=== PATIENT | female | born 1955 | race Caucasian/White ===

== ENCOUNTER 2017-06-19 09:45 | Outpatient (RCR) | payer OTHER ==
--- NOTE | 2017-04-10 17:15 | PT INITIAL EVALUATION ---
MEDICAL DIAGNOSIS: R shoulder pain/irritation, s/p injury. Tendinosis, impingement TREATMENT DIAGNOSIS: same DATE OF ONSET: 03/21/17 SUBJECTIVE: Moraima Vásquez presents to physical therapy with complaints of R shoulder pain that occurred as a result of a work related accident. She reports that on March 21, 2017 while working, she was lifting/transferring a difficult patient with the easy-lift and had a difficulty time with the transfer in which it required a lot of pulling and tugging and during that time she injured her R shoulder. She reports that she does not have any resting pain and rates it to be 0/10 at rest. She reports that her pain increases to 2-3/10 with the following R shoulder motions: horizontal adduction , IR/ER, and turning the steering wheel motion.She describes the pain as a dull ache. She reports that Ford Ramirez MD placed her on lifting restrictions during work. Lastly, she reports that her R shoulder feels better in the morning and worse in the evening. REHAB PROBLEM LIST: Increased Pain Decreased ROM Decreased Strength Decreased Endurance Decreased Function Decreased ADL's PREVIOUS MEDICAL HISTORY: See EMR OCCUPATION: RN at [employer] OBJECTIVE: Posture: She demonstrated minimal B rounded shoulder and forward head ROM: R shoulder AROM: abduction: full; painful arc, flexion: full, end range pain, extension: full, scaption: full, end range pain. IR and ER: full with end range pain. R shoulder PROM: abduction, scaption, flexion. IR, and ER: full with empty end feel Strength: R shoulder: flexion: strong and painless, scaption: strong and painful , abduction: strong and painful, IR: strong and painless, ER: strong and painful. Palpation: TTP: insertional points of the supraspinatus and LHB Special Tests: (+) neers, yocums, and jiang-yoli, (-) for full tears within RTC musculature, (+) open can = supraspinatus involvement, normal scapular thoracic mobility Mobility: Independent Gait: Independent ASSESSMENT: Moraima will benefit from skilled physical therapy to address the listed impairments to improve function and QOL. Short Term Goals 4 weeks: Pt will demonstrate full AROM into flexion, abduction, extension, IR, ER, and abduction with 0/10 pain to improve function and QOL. 8 weeks: Pt will demonstrate 4+/5 with RTC and periscapular strength to improve function and QOL. Patient's Goals improve strength and return to lifting in work PLAN: Patient to be seen for Manual Therapy/STM/MET Strengthening/condition Range of Motion Spinal Stabilization Ultrasound Work Hardening/Cond Stretching Iontophoresis Neuromuscular Re-ed Closed Chain Program Electrical Stim Posture/Body mechanics Home Exercise Program Therapeutic Activities 2x/Week for 2 Months If you have any questions, comments, or concerns about this report or plan, please contact me at . Thank you, Raul Liang, PT, DPT MTDD
[~2017-06-19 09:45] MED LIST: DIA5 PO; KET10 PO; LEVO150T72 PO; VALS1TAB96 PO
== END 2017-07-08 ==
LOC: PT 09:45
PROVIDERS: ATTEND Orthopaedic Surgery
DX: M25.511 Pain in right shoulder (principal); M75.41 Impingement syndrome of right shoulder; M65.811 Other synovitis and tenosynovitis, right shoulder; Y93.F2 Activity, caregiving, lifting; Y92.230 Patient room in hospital as the place of occurrence of the external cause
CPT/HCPCS: 97162

== ENCOUNTER 2017-07-09 11:15 | Outpatient (RCR) | payer OTHER ==
--- NOTE | 2017-07-10 10:40 | PT PLAN OF CARE ---
Physician: Ford Ramirez MD Patient is being seen: 1-2x/week Therapist: Raul Liang, PT, DPT Medical Diagnosis: R shoulder pain/irritation, s/p injury. Tendinosis, impingement Treatment Diagnosis: same Date of Onset: 03/21/17 Date of Initial Evaluation: 04/09/17 Date patient was last seen: 07/09/17 Number of treatments: 10 Number of cancellations/No shows: [*] INTERVENTIONS: Manual Therapy/STM/MET Strengthening/condition Range of Motion Spinal Stabilization Ultrasound Work Hardening/Cond Stretching Iontophoresis Neuromuscular Re-ed Closed Chain Program Electrical Stim Posture/Body mechanics Home Exercise Program Therapeutic Activities GOALS: 4 weeks: Pt will demonstrate full AROM into flexion, abduction, extension, IR, ER, and abduction with 0/10 pain to improve function and QOL. MET 8 weeks: Pt will demonstrate 4+/5 with RTC and periscapular strength to improve function and QOL. MET PATIENT'S GOAL: improve strength and return to lifting in work Status of Patient's Goals: MET Patient Compliance: Good Prognosis: Excellent Reasons for continuing therapy: This is a discharge note for Moraima Vásquez. She reports that she feels like her shoulder is getting better and better. She rates her current pain to be 0/10. She states that the shoulder is doing well, however, continues to feel pain around the upper trap continues to be the most bothersome if anything. She reports that she feels like she is doing well and can manage on her own. She demonstrated full PROM-AROM in all directions with R shoulder with normalized end feels, the catching has resolved, improved R shoulder strength in all direction with abolished pain during MMT, improved scapular stabilization, and independent with her home exercise program. She has met all of her goals. As a result, she will be discharged from formal PT to [facility]. OBJECTIVE: Posture: She demonstrated minimal B rounded shoulder and forward head ROM: R shoulder AROM: abduction: full normal end feel, flexion: full, normal end feel, extension: full, scaption: full, normal end feel. IR and ER: full with normal end feel. R shoulder PROM: abduction, scaption, flexion. IR, and ER: full with normal end feel Strength: R shoulder: flexion: 5/5, scaption: 4+/5, abduction: 4+/5, IR: 5/5, ER: 4+/5 Special Tests: (-) calin, latoya, and john, (-) for full tears within RTC musculature, (-) open can = supraspinatus involvement, normal scapular thoracic mobility Mobility: Independent Gait: Independent If you have any questions, comments, or concerns about this report or plan, please contact me at . Thank you, Raul Liang, PT, DPT MTDD
== END 2017-07-09 18:00 | disposition home or self-care (01) ==
LOC: PT 11:15
PROVIDERS: ATTEND Orthopaedic Surgery
DX: M25.511 Pain in right shoulder (principal); M75.41 Impingement syndrome of right shoulder; M65.811 Other synovitis and tenosynovitis, right shoulder; Y93.F2 Activity, caregiving, lifting; Y92.230 Patient room in hospital as the place of occurrence of the external cause